=== PATIENT | male | born 1935 | race Caucasian/White ===

== ENCOUNTER → 2016-12-05 | Outpatient (CLI) | payer MEDICARE, OTHER ==
[~2016-12-05] MED LIST: GABA-215 PO; INSU100C11 SQ; LISI40TA95 PO; NOVALOG SQ; OMEP20TA11 PO; RANI-45 PO
[2016-12-05 12:42] LABS: BASOPHILS % (AUTO) 0.3 % (0-2); EOSINOPHILS # (AUTO) 0.3 T/MM3 (0-0.5); EOSINOPHILS % (AUTO) 3.7 % (0-4); HGB - HEMOGLOBIN 16.5 GM/DL (13.5-17.5); IMMATURE GRANULOCYTE # (AUTO) 0.01 T/MM3 (0.00-0.03); IMMATURE GRANULOCYTE % (AUTO) 0.1 % (0.0-0.5); LYMPHOCYTES # (AUTO) 1.9 T/MM3 (1-4.8); LYMPHOCYTES % (AUTO) 26.8 % (23-45); MEAN CORPUSCULAR HGB 30.7 UUG (26-34); MEAN CORPUSCULAR HGB CONC(MCHC 35.1 GM/DL (31-37); MEAN CORPUSCULAR VOLUME 87.4 UM3 (80-100); MONOCYTES # (AUTO) 0.7 T/MM3 (0-0.8); MONOCYTES % (AUTO) 10.3 % (0-9.0); NEUTROPHILS #(AUTO)-ABSOLUTE 4.1 T/MM3 (1.8-7.7); NEUTROPHILS % (AUTO) 58.8 % (33-66); RED BLOOD COUNT 5.38 M/MM3 (4.50-5.90)
[2016-12-05 12:49] LABS: ALBUMIN/GLOBULIN RATIO 1.6 RATIO (1.1-2.2); ALKALINE PHOSPHATASE 94 U/L (38-126); ALT (SGPT) 32 U/L (21-72); ANION GAP 11 MEQ/L (5-15); AST (SGOT) 22 U/L (17-59); BUN/CREATININE RATIO 21 RATIO (6-26); CALCIUM 9.3 MG/DL (8.4-10.2); CHLORIDE 107 MEQ/L (98-107); CK - CPK 65 U/L (55-170); CO2 - CARBON DIOXIDE 25 MEQ/L (22-30); GLOMERULAR FILTRATION RATE 72; GLUCOSE 155 MG/DL (75-110); MAGNESIUM 1.6 MG/DL (1.6-2.3); POTASSIUM 4.2 MEQ/L (3.6-5); SODIUM 143 MEQ/L (134-144); TOTAL PROTEIN 6.5 G/DL (6.3-8.2)
--- NOTE | 2016-12-05 12:57 | DI ---
Indication: ITS.REASON: R42 DIZZINESS AND GIDDINESS PROCEDURE: CT HEAD W/O CONTRAST: Encounter: Initial Comparison: None Technique: Axial CT images through the head were performed without contrast. Iterative Reconstruction dose reducing technique was utilized. FINDINGS: The ventricles are of normal size, shape, and contour for the patient's age. There are scattered areas of low attenuation in the white matter which most likely represent changes from chronic microvascular ischemia. The brainstem, cerebellum, and cerebral hemispheres otherwise have a normal morphology and CT attenuation. There is no evidence of midline displacement. No hemorrhage, signs of acute territorial stroke, mass effect, mass lesions, or edema is evident. The visualized portions of the skull base, midface, and calvarium demonstrate no abnormality. Minimal sphenoid sinus disease. The tympanic and mastoid cavities appear normal. IMPRESSION: No acute intracranial abnormality or hemorrhage. .
--- NOTE | 2016-12-05 12:58 | DI ---
INDICATION: ITS.REASON: R42 DIZZINESS AND GIDDINESS PROCEDURE: CHEST 2-VIEWS UPRIGHT (PA \T\ LAT) Encounter: Initial COMPARISON: May 04, 2009 FINDINGS: The lungs are clear without evidence of focal abnormal airspace opacity. There is no pleural effusion or pneumothorax. The heart size, mediastinal contours and pulmonary vascularity are within normal limits. DISH of the thoracic spine. IMPRESSION: No acute cardiopulmonary disease. .
== END ==
LOC: IMA 12:08
PROVIDERS: ATTEND Internal Medicine
DX: R42 Dizziness and giddiness (principal); R00.1 Bradycardia, unspecified; E11.9 Type 2 diabetes mellitus without complications; I10 Essential (primary) hypertension
CPT/HCPCS: 36415; 80053; 82550; 83735; 84443; 84484; 85025